=== PATIENT | male | born 1965 | race Native Hawaiian/Other Pacific Islander ===

== ENCOUNTER 2023-05-02 14:49 | Emergency (ER) | payer BC, SELFPAY ==
[2023-05-02 15:15] VITALS: BP 118/74; PULSE 75; RESP 18; TEMP 36.7; O2SAT 95; BMI 30.3
[2023-05-02 16:32] VITALS: BP 137/85; PULSE 62; O2SAT 97
--- NOTE | 2023-05-02 16:33 | CRLHL7_ITS ---
For Patients: As a result of the Century Cures Act, medical imaging exams and procedure reports are released immediately into your electronic medical record. You may view this report before your referring provider. If you have questions, please contact your health care provider. INDICATION: Chest pain. TECHNIQUE: Chest 2 views. COMPARISON: None. FINDINGS: Cardiovascular and mediastinum: Heart size and vasculature are normal in caliber and appearance. Lungs and pleural spaces: Lungs are clear. No sign of infiltrate or mass. No sign of pleural effusion. No pneumothorax. Bones and soft tissues: No significant findings. IMPRESSION: No acute or significant findings. Dictated by Foreign Blankenship MD @ 05/02/2023 5:39:46 PM (Electronically Signed)
--- NOTE | 2023-05-02 16:46 | ED_ITS ---
HPI - Chest Pain General Date Seen: 05/02/23 Chief Complaint: Chest Pain Stated Complaint: Heart pain for the last week Time Seen by Provider: 05/02/23 16:22 Source: patient Mode of arrival: ambulatory Limitations: no limitations History of Present Illness HPI narrative: Patient is a 57-year-old male with a history of hyperlipidemia, hypertension presenting to emergency department for chest pain. He states over the past week he has had 4 episodes of exertional chest pain. He does admit he had COVID diagnosed 2 weeks ago. He has been trying do his regular home exercise but Says he will get a sharp pain in the midsternal region of his chest. He has never had symptoms like this before. Has no associated shortness of breath. States that last month he had a cardiac calcium CT showing he is in the 96 percentile of calcium in his vessels. States he this test done because he some friends who had heart attacks so it was done as a precaution. Denies any history of blood clots. Has no personal history of cancer. Denies any recent injuries. States he is currently symptom free. Denies fevers, chills, lightheadedness, dizziness, abdominal pain, nausea/vomiting, diarrhea, constipation weakness, numbness. Related Data Home Medications Medication Instructions Recorded Confirmed atorvastatin 40 mg tablet 40 mg PO DAILY cholesterol 05/02/23 05/02/23 lisinopril 20 1 tab PO DAILY 05/02/23 05/02/23 mg-hydrochlorothiazide 25 mg tablet Previous Rx's Medication Instructions Recorded metoprolol tartrate 25 mg tablet 25 mg PO BID #30 tabs 05/02/23 nitroglycerin 0.4 mg sublingual 0.4 mg sublingual Q5-15M PRN chest 05/02/23 tablet (Nitrostat) pain #14 tabs Allergies Allergy/AdvReac Type Severity Reaction Status Date / Time No Known Drug Allergies Allergy Verified 05/02/23 15:22 Review of Systems Status of ROS Reports: 10 or more systems reviewed and unremarkable except as noted in History and below PFSH PFS Social History Non-prescribed substance use: denies use Exam Narrative Exam Narrative: Const: Well-nourished, Well-developed, in no distress Eyes: PERRL, no conjunctival injection, and symmetrical lids HENT: Atraumatic external nose and ears. Moist mucous membranes. Neck: Symmetric, trachea midline, No thyromegaly. CVS: RRR, No murmurs or gallops. Peripheral pulses 2+ and equal in all extremi ties RESP: Unlabored respiratory effort. Clear to auscultation bilaterally. GI: Nontender/Nondistended, No rebound or guarding. MSK:Extremities w/o deformity, Normal Active ROM Skin: Warm, Dry. No rashes or lesions. Neuro: Normal Muscle tone, No focal neurological deficits. Psych: Awake, Alert, & Oriented x3. Appropriate mood and affect. Const Vital Signs, click to edit/add: Vital Signs - 24 hr 05/02/23 15:15 05/02/23 16:32 Temperature 98.1 F Pulse Rate 62 Pulse Rate [Pulse Oximeter] 75 Respiratory Rate 18 Blood Pressure 137/85 Blood Pressure [Right Upper Arm] 118/74 Pulse Oximetry 95 97 Oxygen Delivery Method Room Air Course Vital Signs Vital signs: Initial Vital Signs Temperature 98.1 F 05/02/23 15:15 Temperature Source Temporal Artery Scan 05/02/23 15:15 Pulse Rate 75 05/02/23 15:15 Respiratory Rate 18 05/02/23 15:15 Blood Pressure 118/74 05/02/23 15:15 Blood Pressure Mean 88 05/02/23 15:15 Blood Pressure Position Sitting 05/02/23 15:15 Pulse Oximetry 95 05/02/23 15:15 Oxygen Delivery Method Room Air 05/02/23 15:15 Vital Signs Temperature 98.1 F 05/02/23 15:15 Pulse Rate 75 05/02/23 15:15 Respiratory Rate 18 05/02/23 15:15 Blood Pressure 118/74 05/02/23 15:15 Pulse Oximetry 95 05/02/23 15:15 Oxygen Delivery Method Room Air 05/02/23 15:15 Temperature 98.1 F 05/02/23 15:15 Pulse Rate 62 05/02/23 16:32 Respiratory Rate 18 05/02/23 15:15 Blood Pressure 137/85 05/02/23 16:32 Pulse Oximetry 97 05/02/23 16:32 Oxygen Delivery Method Room Air 05/02/23 15:15 MDM - Chest Pain MDM Narrative Medical decision making narrative: Patient is a 57-year-old male presenting to the emergency department for chest pain. Symptoms are only there with moderate to heavy exertion. Is asymptomatic at this time. Has had no previous heart disease but does have hypertension and hyperlipidemia. ACS workup was ordered. EKG shows no concerning abnormalities. Chest x-ray shows no concerning f indings. CBC, CMP, D-dimer of showed no concerning findings. I do not believe is necessary to repeat a COVID test since he already a positive test 2 weeks ago. Since he does have this abnormal cardiac calcium CT there is concerned this is stable angina. I spoke to [facility] who recommends that as long as everything else looks normal and he is asymptomatic at rest to start him on a beta-sweetie 25 mg b.i.d. and given p.r.n. nitro. He also states the patient needs to move his previously scheduled cardiology appointment up from the end of May. They said they will call him in the morning but also informed patient to call himself if he does not hear from anyone by the afternoon. Lab Data Labs: Lab Results 05/02/23 05/02/23 Range/Units 16:45 18:44 WBC 5.19 (4.50-11.00) K/uL RBC 4.95 (4.30-5.90) m/uL Hgb 15.3 (13.5-17.5) gm/dL Hct 43.9 (37.0-53.0) % MCV 89 (80-100) fL MCH 31 (26-34) pg MCHC 35 (32-36) gm/dL RDW Coeff of Venancio 12.4 (11.5-15.5) % Plt Count 285 (140-440) K/uL Neut % (Auto) 58.2 (42.0-72.0) % Lymph % (Auto) 28.1 (20-44) % [place] % (Auto) 8.1 (0.0-11.0) % Eos % (Auto) 5.0 (0.0-7.0) % Baso % (Auto) 0.4 (0.0-3.0) % Neut # (Auto) 3.02 (1.7-7.0) K/uL Lymph # (Auto) 1.46 (0.90-2.90) K/uL [place]ens # (Auto) 0.40 (0.00-0.90) K/UL Eos # (Auto) 0.26 (0.00-0.50) K/uL Baso # (Auto) 0.02 (0.00-0.30) K/uL Abs Immat Gran (auto) 0.01 (0.00-0.30) K/uL Imm/Tot Granulo (auto) 0.2 % D-Dimer Quant (PE/DVT) < 0.27 (0.00-0.50) ug/ml Sodium 140 (135-149) mmol/L Potassium 3.7 (3.6-5.1) mmol/L Chloride 100 (96-114) mmol/L Carbon Dioxide 29 (20-32) mmol/L Anion Gap 11 (7-15) mEq/L BUN 18 (7-30) mg/dL Creatinine 1.2 (0.5-1.5) mg/dL Estimated Creat Clear 75.83 Estimated GFR 70 ml/min Glucose 111 (60-115) mg/dL Calcium 9.4 (8.4-10.6) mg/dL Total Bilirubin 0.6 (0.1-1.5) mg/dL AST 33 (12-35) U/L ALT 45 (4-50) U/L Alkaline Phosphatase 51 (40-150) U/L Troponin I < 0.01 L < 0.01 L (0.01-0.04) ng/mL NT-Pro-B Natriuret Pep < 20 pg/mL Total Protein 7.7 (6.0-8.3) g/dL Albumin 4.7 (3.3-5.0) g/dL Discharge Plan Discharge Clinical Impression: Chest pain Qualifiers: Chest pain type: unspecified Qualified Code(s): R07.9 - Chest pain, unspecified Patient Disposition: Home, Self-Care Condition: Stable Instructions: Chest Pain (DC) Additional Instructions: [facility] should be calling you tomorrow morning to move up your appointment in May. If they do not call you by the afternoon he should call them and let them know there is concerned you are having issues with stable angina and was told to be seen in the office sooner than the end of May. Start taking metoprolol 25 mg b.i.d. and use the nitroglycerin as needed for chest pain. At this time I recommend light exercise at the very most until cleared by Cardiology. If you do any have your exercise than that I recommend stopping as soon as the chest pain starts Prescriptions: New metoprolol tartrate 25 mg tablet 25 mg PO BID Qty: 30 0RF nitroglycerin [Nitrostat] 0.4 mg tablet, sublingual 0.4 mg sublingual Q5-15M PRN (Reason: chest pain) Qty: 14 0RF Rx Instructions: do not exceed 3 doses per episode No Action atorvastatin 40 mg tablet 40 mg PO DAILY lisinopril-hydrochlorothiazide 20-25 mg tablet 1 tab PO DAILY Follow Up/Referrals: Vick Hernández MD [Primary Care Provider] - Stand Alone Forms: [facility] Info Instructions
[2023-05-02 16:53] LABS: Basophils Absolute Auto 0.02 K/uL (0.00-0.30); Basophils Percent Auto 0.4 % (0.0-3.0); Eosinophils Absolute Auto 0.26 K/uL (0.00-0.50); Hematocrit 43.9 % (37.0-53.0); Hemoglobin* 15.3 gm/dL (13.5-17.5); Immature Granulocytes Abs Auto 0.01 K/uL (0.00-0.30); Immature Granulocytes Pct Auto 0.2 %; Lymphocytes Absolute Auto 1.46 K/uL (0.90-2.90); Lymphocytes Percent Auto 28.1 % (20-44); Mean Corpuscular HGB Conc 35 gm/dL (32-36); Mean Corpuscular Hemoglobin 31 pg (26-34); Mean Corpuscular Volume 89 fL (80-100); Monocytes Percent Auto 8.1 % (0.0-11.0); Neutrophils Absolute Auto 3.02 K/uL (1.7-7.0); Neutrophils Percent Auto 58.2 % (42.0-72.0); Platelet Count* 285 K/uL (140-440); RDW Coefficient of Variation % 12.4 % (11.5-15.5); Red Blood Count 4.95 m/uL (4.30-5.90); White Blood Count* 5.19 K/uL (4.50-11.00)
[2023-05-02 17:06] LABS: Slide Review Reflex No
[2023-05-02 17:08] LABS: Albumin* 4.7 g/dL (3.3-5.0); Chloride* 100 mmol/L (96-114)
[2023-05-02 17:09] LABS: Potassium* 3.7 mmol/L (3.6-5.1); Sodium* 140 mmol/L (135-149)
[2023-05-02 17:11] LABS: Anion Gap 11 mEq/L (7-15); Aspartate Amino Transferase* 33 U/L (12-35); Bilirubin Total* 0.6 mg/dL (0.1-1.5); Carbon Dioxide* 29 mmol/L (20-32); Creatinine* 1.2 mg/dL (0.5-1.5); Est. Creatinine Clearance* 75.83; Estimated Glomerular Filt Rate 70 ml/min; Total Protein* 7.7 g/dL (6.0-8.3)
[2023-05-02 17:12] LABS: Alanine Aminotransferase* 45 U/L (4-50); Alkaline Phosphatase* 51 U/L (40-150); Blood Urea Nitrogen* 18 mg/dL (7-30); Calcium* 9.4 mg/dL (8.4-10.6); Glucose* 111 mg/dL (60-115)
[2023-05-02 17:23] LABS: D Dimer Quantitative* < 0.27 ug/ml (0.00-0.50); NT Pro B Type NatriureticPept* < 20 pg/mL
[2023-05-02 17:24] LABS: Troponin I* < 0.01 ng/mL (0.01-0.04)
[2023-05-02 19:36] LABS: Troponin I* < 0.01 ng/mL (0.01-0.04)
--- NOTE | 2023-05-03 12:33 | ED.NURSE ---
Patient called and requested prescriptions be sent to [facility]. I called Metoprolol and Nitro Stat to [facility].
== END 2023-05-02 19:57 | disposition home or self-care (01) ==
PROVIDERS: Emergency Provider Student in an Organized Health Care Education/Training Program; PCP Family Medicine
DX: R07.9 Chest pain, unspecified (principal)
CPT/HCPCS: 36415; 71046; 80053; 83880; 84484; 85025; 85379; 93005; 99283; 99284; 99285